=== PATIENT | female | born 1945 | race Caucasian/White ===

== ENCOUNTER → 2017-09-25 | Outpatient (CLI) | payer OTHER ==
[~2017-09-25] MED LIST: ASPIRIN; BP MED; CALCIUM; CELEXA40 MG PO; CHANTIX0.5 MG PO; DYRENIUM50 MG PO; FLUOCINONI0.05 %/31 TOP; LISINOPRIL5 MG PO; LOVASTATIN 20 M20 MG PO; MEDROLDOSEPACK PO; MOBIC15 MG PO; OSTEOPOROSIS MED; PREVACID DIS; PROTONIX40 M1 PO; PROZAC; RECLAST 55 MG/1002 IVPB
== END ==
LOC: M.RAD 12:12
DX: M47.896 Other spondylosis, lumbar region (principal); M25.551 Pain in right hip; G89.29 Other chronic pain; Z78.0 Asymptomatic menopausal state

== ENCOUNTER → 2017-10-12 | Outpatient (CLI) | payer OTHER ==
--- NOTE | 2017-11-08 13:42 | PAINCON ---
[address] [address] PAIN MANAGEMENT CONSULTATION Name: LLUVIA BENNETT Room: [facility] Nicole#: [id number] Admission: 10/12/17 Attend Phys: Marlys Peña MD Discharge: Date of : 49 Report #: [id number] THIS REPORT FOR: //name// CC: Gissell Peña DATE OF SERVICE: 10/12/2017 CHIEF COMPLAINT: "Feels like one leg is shorter than the other on the right side. Feels like there is a faulty hinge in my hip with no cushion." HISTORY OF PRESENT ILLNESS: The patient is a 72-year-old female who has been referred to the Pain Clinic for evaluation. The patient states that for quite some time she has been experiencing pain and discomfort in her back as well as pain in her hip. She notes that there is the perception that her right leg is shorter than her left. She feels that that makes it a little more difficult to ambulate secondary to this perception of unequal leg lengths. She sometimes feels that her legs are weak at times. She notes some cramps in her back as well as worsening of some pain when she is standing up, particularly at the kitchen sink. Changing sheets at home and another house work can be quite problematic. She rates her pain as a 3/10 at this juncture. She has tried xdlm-[id number]-[id number] anti-inflammatory medications like ibuprofen p.r.n. She has used hydrocodone 5/325 1-2 p.r.n. She is not sure that these medications have been significantly helpful. Denies any trauma to her back. She notes that the pain is better when she sits down. Bending and walking can exacerbate her discomfort. Described as periodic, aching and gnawing. She rates it overall as a 7/10. She has not had a back surgery and has not had hip surgery. ALLERGIES: No known drug allergies. CURRENT MEDICATIONS: Celexa 20 mg daily, lovastatin 20 mg with evening meal, Protonix 40 mg daily, triamterene 50 mg. PAST MEDICAL HISTORY: Gallbladder disease, essential hypertension, mixed hyperlipidemia, chronic left-sided low back pain with left-sided sciatica, moderate single current episode of major depressive disorder, and obesity. PAST SURGICAL HISTORY: Cholecystectomy in 2015. Ear surgery, late 1970s and early 1980s. SOCIAL HISTORY: She is retired, has not worked in 18 years. REVIEW OF SYSTEMS: Questionnaire 12-point review indicates fatigue, weakness, hearing loss, ringing in the ears, frequent urination, joint pain, joint stiffness, muscle and joint weakness, back pain, difficulty walking, [place] [address] PAIN MANAGEMENT CONSULTATION Name: LLUVIA BENNETT Room: [facility] JESSICA Rivrea#: [id number] Admission: 10/12/17 Attend Phys: Marlys Peña MD Discharge: Date of : 49 Report #: [id number] rash/itching, and depression. LABORATORY DATA: AP view of the pelvis with two views of the right hip in 09/25/2017 reveals the osseous structures are intact. Hip joints are maintained. Lower lumbar spondylosis. Suggestion of at least mild bilateral hip joint space narrowing. No fracture or dislocation. X-ray lumbar spine, AP, lateral, 2-3 views findings, lumbar spine alignment and curvature is within normal limits. The lumbar spine vertebral body heights were maintained. There is no significant disk space narrowing with mild disk space narrowing identified at L3-L4, and L2-L3. No evidence of compression fracture or spondylolisthesis. Mild caudal facet arthrosis. PAIN CLINIC ASSESSMENT: 1. Osteoarthritis/rheumatoid arthritis. The patient is not being treated for these items. 2. Height 5 feet 2 inches, weight 190 pounds, BMI is 34. 3. Vital Signs: Blood pressure 144/61, respiratory rate 16, heart rate 69, room air saturation 96%, temperature 98.6. 4. Pain intensity 3/10. 5. Fall risk. The patient has not fallen in the last 3 months. 6. Blood thinner. The patient is not on a blood thinner 7. History of hypertension. The patient is being treated for hypertension. 8. Opioids greater than 6 weeks. The patient has been taking hydrocodone 5/325. 9. Risk assessment tool. 10. Functional assessment tool: Scores 26/70, which indicates moderate amounts of pain impacting activities of daily living. 11. Recreational drug use. Denies use of recreational drugs. 12. Tobacco: The patient admits to use of tobacco 1 pack per day, has smoked for 50 years. 13. Alcohol. The patient denies use of alcoholic beverages. PHYSICAL EXAMINATION: GENERAL: The patient is a well-developed, well-nourished white female. She appears her stated age. She is alert and oriented x 3. Affect appears appropriate. Speech is fluent. HEENT: Normocephalic, atraumatic. Extraocular eye muscles intact. Sclerae are nonicteric. NECK: Without adenopathy or JVD. HEART: Regular rate. S1, S2. LUNGS: Clear to auscultation without rales or rhonchi. ABDOMEN: Protuberant. MUSCULOSKELETAL: Without significant scoliosis, kyphosis or lordosis. Upper extremity muscle strength is judged to be 5/5 for the major muscle groups of the upper extremity. Sensation is within normal limits. No sensory changes. Lower extremity lumbar rotation left and right were not very problematic. Left and [facility] [address] [place] [address] PAIN MANAGEMENT CONSULTATION Name: LLUVIA BENNETT Room: [facility]#: [id number] Admission: 10/12/17 Attend Phys: Marlys Peña MD Discharge: Date of : 49 Report #: [id number] right lateral bending cause some increased discomfort down the right hip area. Forward bending to 35 degrees cause some increased pain and discomfort in the low back area. Lumbar extension was limited with some increased discomfort. IMPRESSION: 1. Chronic left-sided low back pain with some history of sciatica on the left side. 2. Essential hypertension. 3. Mixed hyperlipidemia. 4. Moderate single current episode of major depressive disorder. 5. Obesity. RECOMMENDATIONS: We discussed treatment options with the patient. She does complain of pain and discomfort in her low back area with some pain that is radiating down into the left leg and in the sciatic distribution. At this juncture, we will try a conservative approach. We will provide the patient with a Medrol Dosepak. She will take this as prescribed. She will note its efficacy. She will also try meloxicam 15 mg daily and note its efficacy. She does have some problems with her stomach. Therefore, she will be mindful. If she notes any upset of her GI tract, she will stop taking this medication. Possibility of a lumbar epidural steroid injection is possible. Also, the patient has pain and discomfort, which she describes in her left hip. May consider injecting the left hip area in the future. We would like to thank you for letting us participate in her care. We hope she continues to improve. <ELECTRONICALLY SIGNED> By: Marlys Peña MD 11/08/17 1342 1018 0145N. Berhane Peña MD /nt
== END ==
LOC: M.PC 04:04
DX: M54.42 Lumbago with sciatica, left side (principal); I10 Essential (primary) hypertension; E78.2 Mixed hyperlipidemia; F32.1 Major depressive disorder, single episode, moderate; E66.9 Obesity, unspecified

== ENCOUNTER → 2017-11-09 | Outpatient (CLI) | payer OTHER ==
--- NOTE | 2017-11-23 15:18 | PAINCON ---
[address] [address] PAIN MANAGEMENT CONSULTATION Name: LLUVIA BENNETT Room: [facility] Nicole#: [id number] Admission: 11/09/17 Attend Phys: Marlys Peña MD Discharge: Date of : 49 Report #: [id number] THIS REPORT FOR: //name// CC: Gissell Peña DATE OF SERVICE: 11/09/2017 FOLLOWUP HISTORY: The patient is a 72-year-old female who has been seen previously in the pain clinic. She is returning today for renewal of medications. She feels that with the Medrol Dosepak and Mobic that her pain is improved. Rates the pain as a 0/10 when sitting. Overall, she feels that her pain is improving in the low back and right hip area. She has had no complications from the use of Medrol Dosepak and Mobic. She states that she would like to feel better, so she could return to work. Hopefully, she has a target date of about [place]. She states that she is tired of sitting at home with lack of intelligent television. At this juncture, she feels that she does not need an injection. She would like to continue on a conservative approach. She feels that another Medrol Dosepak might be helpful. She would like to continue also with the meloxicam. ALLERGIES: No known drug allergies. MEDICATIONS: Celexa 20 mg daily, lovastatin 20 mg with meals, Protonix 40 mg daily, triamterene 50 mg. PAIN CLINIC ASSESSMENT: 1. Osteoarthritis/rheumatoid arthritis. The patient is not being treated for these items. 2. Height 5 feet 3, weight 190 pounds, BMI is 33. 3. Vital signs: Blood pressure 139/59, heart rate 69, respiratory rate 16, room air saturation 96%, temperature 98.1. 4. Pain score 0 while sitting. 5. Fall risk. The patient has not fallen in the last 3 months. 6. Blood thinner. The patient is not on a blood thinning medication. 7. History of hypertension. The patient is being treated for hypertension. 8. Opioids greater than 6 weeks. The patient is taking hydrocodone 5/325. 9. Risk assessment tool. 10. Functional assessment tool, scores 26/70, which indicates moderate amounts of pain and discomfort with activities of daily living. 11. Recreational drug use. The patient denies use of recreational drugs. 12. Tobacco: The patient admits to use of 1 pack of cigarettes per day. The patient has smoked for 50 years. 13. Alcohol: The patient denies use of alcoholic beverages. PHYSICAL EXAMINATION: [place] [address] PAIN MANAGEMENT CONSULTATION Name: LLUVIA BENNETT Room: [facility]#: [id number] Admission: 11/09/17 Attend Phys: Marlys Peña MD Discharge: Date of : 49 Report #: [id number] GENERAL: The patient is a well-developed, well-nourished white female, appears her stated age. She is alert and oriented x 3. Affect is appropriate. Speech is fluent. HEENT: Normocephalic, atraumatic. Extraocular eye muscles intact. Sclerae nonicteric. NECK: Without adenopathy or JVD. HEART: Regular rate. S1, S2. LUNGS: Clear to auscultation without rales or rhonchi. ABDOMEN: Protuberant. MUSCULOSKELETAL: Without significant scoliosis, kyphosis or lordosis. The Upper extremity muscle strength is judged to be 5/5 for the major muscle groups. Sensation is within normal limits. No sensory changes are noted. Lower extremity observation indicate left and right lateral rotation were not very problematic. Left and right lateral bending causes some increased discomfort in the right hip area. Forward bending to 35 degrees note some increased pain and discomfort in the low back area. Lumbar extension limited with increasing discomfort. IMPRESSION: 1. Chronic left-sided low back pain with some history of sciatica on the left. 2. Essential hypertension. 3. Mixed hyperlipidemia. 4. Single event moderate major depressive disorder. 5. Obesity. RECOMMENDATIONS: We discussed treatment options with the patient. At this juncture, she felt that the use of a Medrol Dosepak and Mobic were efficacious. We will continue with this conservative treatment. She will be given an additional script for a Medrol Dosepak, which she will take. If her pain continues to be problematic, she will then return to the pain clinic at which time we will consider an epidural steroid injection if she is having left sciatic outflow pain and sciatica. The patient will continue to monitor her stomach for aspects of nonsteroidal anti-inflammatory irritation, which could be caused by Mobic. She will stop her medication at that point. We would like to thank you for letting us participate in her care. We hope she continues to improve. Hopefully, the patient continues and decrease the use of tobacco. <ELECTRONICALLY SIGNED> By: Marlys Peña MD 11/23/17 1518 1630 0102N. Berhane Peña MD /nt
== END ==
LOC: M.PC 01:10
DX: I10 Essential (primary) hypertension (principal); M54.42 Lumbago with sciatica, left side; E78.5 Hyperlipidemia, unspecified; E66.9 Obesity, unspecified; F32.1 Major depressive disorder, single episode, moderate

== ENCOUNTER 2018-02-15 12:37 | Emergency (ER) | payer OTHER ==
[~2018-02-15] VITALS: Ht 157.5 cm; Wt 89.8 kg
[~2018-02-15 12:37] MED LIST changes: -CHANTIX0.5 MG PO; -FLUOCINONI0.05 %/31 TOP; -LISINOPRIL5 MG PO
[2018-02-15] MEDS ORDERED: LISINOPRIL5 MG PO (12:58)
[2018-02-15] MEDS ORDERED: FLUOCINONI0.05 %/31 TOP (12:58)
[2018-02-15] MEDS ORDERED: CHANTIX0.5 MG PO (12:59)
[2018-02-15 13:34] LABS: ABSOLUTE BASOPHILS 0.1 thou/uL (0.0-0.2); ABSOLUTE EOSINOPHILS 0.2 thou/uL (0.0-0.7); ABSOLUTE LYMPHOCYTES 2.2 thou/uL (0.8-5.3); ABSOLUTE MONOCYTES 0.9 thou/uL (0.0-1.2); ABSOLUTE NEUTROPHILS 5.9 thou/uL (1.6-8.1); BASOPHILS 1.4 %; EOSINOPHILS 2.4 %; HEMATOCRIT 35.3 % (37.0-47.0); HEMOGLOBIN 11.7 gm/dL (12.0-15.0); LYMPHOCYTES 23.2 %; MCH 30.2 pg (26.0-34.0); MCHC 33.2 g/dL (28.0-37.0); MCV 90.9 fL (80.0-100.0); MONOCYTES 9.3 %; MPV 7.8 fl. (7.2-11.1); NUCLEATED RBCS 0 /100WBC; PLATELET COUNT* 259 thou/uL (150-400); POLYS 63.7 %; RBC 3.88 mil/uL (4.20-5.00); RDW-CV 13.6 % (10.5-14.5); WBC 9.3 thou/uL (4.0-11.0)
[2018-02-15 13:42] LABS: ANION GAP 5 mmol/L (7-16); BUN 15 mg/dL (7-18); CALCIUM 8.5 mg/dL (8.5-10.1); CHLORIDE 102 mmol/L (98-107); CO2 28 mmol/L (21-32); CREATININE 1.2 mg/dL (0.6-1.3); GLUCOSE 77 mg/dL (70-99); POTASSIUM 3.2 mmol/L (3.5-5.1); SODIUM 135 mmol/L (136-145)
[2018-02-15 13:48] LABS: URINE BILIRUBIN NEGATIVE (Negative); URINE BLOOD TRACE (Negative); URINE CLARITY CLEAR; URINE COLOR YELLOW; URINE GLUCOSE-RANDOM NEGATIVE (Negative); URINE KETONES NEGATIVE (Negative); URINE LEUKOCYTES-REFLEX NEGATIVE (Negative); URINE NITRITE-REFLEX NEGATIVE (Negative); URINE PROTEIN NEGATIVE (Negative); URINE SPECIFIC GRAVITY <= 1.005 (1.005-1.030); URINE UROBILINOGEN 0.2 E.U./dl (0.2-1.0)
[2018-02-15 14:03] LABS: ALBUMIN 3.2 g/dL (3.4-5.0); ALKALINE PHOSPHATASE 70 U/L (46-116); LIPASE 143 U/L (73-393); NT-PRO BRAIN NAT PEPTIDE 1322 pg/mL (<300); SGOT 16 U/L (15-37); SGPT 23 U/L (30-65); TOTAL BILIRUBIN 0.8 mg/dL (<0.1-1.0); TOTAL PROTEIN 6.7 g/dL (6.4-8.2); TROPONIN-I LEVEL <0.06 ng/mL (<0.06)
[2018-02-15 15:45] VITALS: BP 197/85
--- NOTE | 2018-02-15 16:50 | EKG ---
[place] [address] ELECTROCARDIOGRAM REPORT Name: LLUVIA BENNETT Room: [facility]#: [id number] Admission: 02/15/18 Attend Phys: Discharge: 02/15/18 Date of : 49 Report #: [id number] THIS REPORT FOR: //name// [facility] ED Test Date: 2018-02-15 Test Time: 13:09:30 Pat Name: LLUVIA BENNETT Department: Room: Gender: F Missileman: Carolina KERNS : 1945 Requested By: Keiry Rasmussen Order Number: [id number] MD: Leo Haskins Measurements Intervals [place] Rate: 56 P: -36 NC: 121 QRS: 52 QRSD: 91 T: 6 QT: 477 QTc: 461 Interpretive Statements Sinus rhythm Low voltage, precordial leads Borderline T abnormalities, diffuse leads Compared to ECG 06/17/2009 13:33:06 Low QRS voltage now present T-wave abnormality now present ST (T wave) deviation no longer present Electronically Signed On 02-15-2018 16:50:32 CDT by Leo Haskins [email or web address] <ELECTRONICALLY SIGNED> By: Leo Haskins MD, [facility] 02/15/18 1650 1309 1309 Leo Haskins MD, [facility] /EPI
== END 2018-02-15 15:47 | disposition home or self-care (01) ==
LOC: M.ERS 12:37
PROVIDERS: Nurse Practitioner
DX: E87.70 Fluid overload, unspecified (principal); R06.02 Shortness of breath; I10 Essential (primary) hypertension; E78.00 Pure hypercholesterolemia, unspecified; F41.9 Anxiety disorder, unspecified; F32.9 Major depressive disorder, single episode, unspecified; M54.9 Dorsalgia, unspecified; G89.29 Other chronic pain; F17.210 Nicotine dependence, cigarettes, uncomplicated; Z88.1 Allergy status to other antibiotic agents

== ENCOUNTER → 2019-01-24 | Outpatient (CLI) | payer OTHER ==
[~2019-01-24] MED LIST changes: +CHANTIX0.5 MG PO; +FLUOCINONI0.05 %/31 TOP; +LISINOPRIL5 MG PO; +NORVASC2.5 MG PO; +SPIRONOLACTONE25 M1 PO
--- NOTE | ~2019-01-24 | PAINCON ---
[address] [address] PAIN MANAGEMENT CONSULTATION Name: LLUVIA BENNETT [id number] Admission: 01/24/19 Attend Phys: Marlys Peña MD Discharge: Date of : 49 Report #: [id number] THIS REPORT FOR: //name// CC: Gissell Peña DATE OF SERVICE: 01/24/2019 CHIEF COMPLAINT: Low back pain. HISTORY: The patient is a 73-year-old female who has been seen in the pain clinic in the past because of lumbar radiculopathy. She returns today with a note that she is having more pain and discomfort. Pain over the last 2 years, has increased. She is not able to walk for long distances. She notes that when she goes to [facility], she likes to ride in a golf course cart. Has pain involving her hip, thigh and down to the calf. She denies any surgery. Does note that she sometimes has an urge to micturate. She usually gets no real advance before she has to go. She has used Mobic. Notes that walking, sitting, standing, bending, and other activities are problematic. She has been using Chantix to decrease use of tobacco. She would like to proceed today with an epidural steroid injection to help control the pain and discomfort she is experiencing. ALLERGIES: No known drug allergies. CURRENT MEDICATIONS: Celebrex 20 mg daily, lovastatin 20 mg with meals, Protonix 40 mg, triamterene 50 mg, and Chantix. PAIN CLINIC AND PQRS: 1. The patient is not being treated for osteoarthritis or rheumatoid arthritis. 2. Height 5 feet 3 inches, weight 195 pounds, BMI is 34. 3. Vital signs: Blood pressure 149/61, heart rate 89, respiratory rate 18, room air saturation 97%, and temperature 98.1. 4. Pain intensity 8/10 with walking and prolonged standing. 5. Fall risk. The patient has not fallen in the last 3 months. 6. Blood thinner. The patient is not on a blood thinning medication. 7. Hypertension. The patient is being treated for hypertension. 8. Opioids greater than 6 weeks. The patient is taking hydrocodone to help with the pain. 9. Risk assessment tool, low for opioid use. 10. Functional assessment tool . 11. Drug use. The patient denies use of recreational drugs. 12. Tobacco: The patient admits to use of 1 pack of cigarettes per day and is now trying to use Chantix. Has a 50-year smoking history. 13. Alcohol. The patient denies use [place] [address] PAIN MANAGEMENT CONSULTATION Name: LLUVIA BENNETT [id number] Admission: 01/24/19 Attend Phys: Marlys Peña MD Discharge: Date of : 47 Report #: [id number] PHYSICAL EXAMINATION: GENERAL: The patient is a well-developed, well-nourished white female. Appears her stated age. She is alert and oriented x 3. Her affect is appropriate. Speech is fluent. HEENT: Normocephalic, atraumatic. Extraocular eye muscles intact. Sclerae nonicteric. Mucous membranes are moist. NECK: Without adenopathy or JVD. HEART: Regular rate. S1, S2. LUNGS: Clear to auscultation. ABDOMEN: Protuberant. Bowel sounds present. MUSCULOSKELETAL: Without significant scoliosis, kyphosis or lordosis. The patient has pain and discomfort in lower portion of her back. The patient radiates down in the right L5-S1 dermatomal distribution. Notes some increased discomfort with lumbar movement such as flexion. IMPRESSION: 1. Chronic left-sided low back pain with history of sciatica on the left. 2. Essential hypertension. 3. Mixed hyperlipidemia. 4. Single event, moderate major depressive disorder. 5. Obesity. RECOMMENDATIONS: We discussed treatment options with the patient. Risks and benefits of an epidural steroid injection were discussed. They could include but are not limited to infection, worsening of pain, bleeding, nerve irritation with paralysis, muscle soreness. The patient elects to proceed. PROCEDURE NOTE: The patient was taken to the procedure area. She was then assisted in getting on the examination table. A pillow had been placed under her abdomen to bolster and improve positioning. Her back was sterilely prepped with a Betadine solution. Fluoroscopy using anterior, posterior as well as lateral viewing were implemented. The patient's back was then infiltrated with a 25-gauge needle with 0.5% bupivacaine. This was in a midline approach at L5-S1. A 17-gauge Tuohy with loss of resistance technique was used to gain access to the epidural space using a right paramedian approach. The patient tolerated the procedure well. There were no complications. A total of 7 seconds fluoroscopy time was used. The patient tolerated the procedure well. She will follow up in the future as needed. She will call us if she has any concerns. We would like to thank you for letting us participate in her care. We hope she continues to improve. By: 1712 2352N. Berhane Peña MD /nt
== END | disposition home or self-care (01) ==
LOC: M.PC 09:30
DX: M54.16 Radiculopathy, lumbar region (principal); G89.29 Other chronic pain; I10 Essential (primary) hypertension; E78.2 Mixed hyperlipidemia; F32.1 Major depressive disorder, single episode, moderate; F17.210 Nicotine dependence, cigarettes, uncomplicated; E66.09 Other obesity due to excess calories; Z79.891 Long term (current) use of opiate analgesic; Z88.8 Allergy status to other drugs, medicaments and biological substances; Z98.890 Other specified postprocedural states; Z79.899 Other long term (current) drug therapy; Z68.34 Body mass index [BMI] 34.0-34.9, adult

== ENCOUNTER → 2020-06-19 | Outpatient (CLI) | payer OTHER | LOC: M.ULTRA 12:51 | PROVIDERS: ATTEND Family Medicine | DX: I73.9 Peripheral vascular disease, unspecified (principal) ==

== ENCOUNTER → 2020-07-29 | Outpatient (CLI) | payer OTHER ==
[2020-07-29 11:05] LABS: CREATININE 1.3 mg/dL (0.6-1.3)
== END ==
LOC: M.LAB 10:17 → M.CT 11:30
PROVIDERS: ATTEND Surgery Vascular Surgery
DX: I70.213 Atherosclerosis of native arteries of extremities with intermittent claudication, bilateral legs (principal); I71.4 Abdominal aortic aneurysm, without rupture; M25.78 Osteophyte, vertebrae; K57.30 Diverticulosis of large intestine without perforation or abscess without bleeding; I70.1 Atherosclerosis of renal artery; I74.5 Embolism and thrombosis of iliac artery